=== PATIENT | female | born 2000 | race Asian ===

== ENCOUNTER 2021-09-01 21:27 | Emergency (ER) | payer OTHER ==
[~2021-09-01] VITALS: Ht 152.4 cm; Wt 59.1 kg
[2021-09-01] MEDS ORDERED: LevETIRAcetam 500 MG TABLET PO ONE (22:30)
[2021-09-01 22:36] VITALS: BP 114/68
== END 2021-09-01 23:08 | disposition home or self-care (01) ==
LOC: EMS 21:28
DX: G40.909 Epilepsy, unspecified, not intractable, without status epilepticus (principal); F41.9 Anxiety disorder, unspecified
CPT/HCPCS: 99283